=== PATIENT | female | born 1970 | race African-American/Black ===

== ENCOUNTER 2017-09-29 08:25 | Emergency (ER) | payer SELFPAY ==
[2017-09-29] MEDS: cefTRIAXone IM 250 MG VIAL IM (08:57)
[2017-09-29] MEDS: metroNIDAZOLE 500 MG TABLET PO (08:58)
[2017-09-29] MEDS: AZITHROMYCIN 250 MG TABLET. PO (08:58)
[2017-09-29 09:32] LABS: BILIRUBIN,URINE NEGATIVE (NEG); CLARITY,URINE CLEAR; COLOR,URINE YELLOW; GLUCOSE,URINE NEGATIVE (NEG); NITRITE,URINE NEGATIVE (NEG); PH,URINE 6.5; PROTEIN,URINE NEGATIVE (NEG-TRACE)
[2017-09-29 09:57] LABS: BACTERIA,URINE FEW /HPF (0-FEW); RBC,URINE OCC /HPF (0-2); SQUAMOUS EPITHELIAL CELL,UR FEW /LPF
[2017-09-30 15:36] LABS: CHLAMYDIA PROBE Negative (Negative); GC PROBE Negative (Negative)
== END 2017-09-29 10:39 | disposition home or self-care (01) ==
LOC: ER 08:25
DX: N39.0 Urinary tract infection, site not specified (principal); N76.0 Acute vaginitis; B96.89 Other specified bacterial agents as the cause of diseases classified elsewhere; E78.00 Pure hypercholesterolemia, unspecified; I10 Essential (primary) hypertension; Z98.51 Tubal ligation status; Z88.0 Allergy status to penicillin
CPT/HCPCS: 81001; 87086; 87491; 87591; 96372; 99284; J0696; Q0111; Q0144